=== PATIENT | male | born 1965 | race Caucasian/White ===

== ENCOUNTER → 2019-07-30 | Outpatient (CLI) | payer OTHER ==
[~2019-07-30] MED LIST: DIATRIZOATE MEGL/DIATRIZOA SOD 30 ML BTL PO ONE; IOPAMIDOL 370 MG/ML 200 ML INFUS..BTL INJ ONE; SODIUM CHLORIDE 0.9% 50ML 50 ML ONE
--- NOTE | 2019-07-30 19:17 | Diagnostic Imaging Report ---
CT Abdomen And Pelvis with Intravenous Contrast INDICATION: Lower abdominal pain ^[id number] ^1830 ^ABD PAIN; HX OF DIVERTICULITIS TECHNIQUE: Thin collimation axial images obtained from the diaphragm to the level of the pubic symphysis following the uneventful administration of 100 cc of low osmolar, nonionic intravenous contrast. Enteric contrast was also administered. Dose reduction techniques used: Automated exposure control, adjustment of the mAs and/or kVp according to patient size, standardized low-dose protocol, and/or iterative reconstruction technique. RADIATION DOSE: Total DLP: 752.47 mGy*cm Estimated effective dose: (DLP x 0.015 x size factor) mSv CTDIvol has been reviewed. It is below the limits set by the Radiation Protocol Committee (RPC). COMPARISON: None. ABDOMEN FINDINGS: Lung Bases: Clear. The visualized portions of the mediastinum are normal. Liver: Steatosis. The right lobe measures 18 cm. No evidence for mass. Gallbladder: Present and appears normal. No biliary ductal dilatation. Pancreas: Normal attenuation without mass or ductal dilatation. Spleen: Normal in size. No evidence of mass. Adrenal Glands: No evidence for mass. Kidneys: Right: Normal enhancement. No soft tissue mass. No hydronephrosis. Left: Normal enhancement. No soft tissue mass. No hydronephrosis. Lymph Nodes: No lymphadenopathy. Aorta: Normal in diameter PELVIS FINDINGS: Bowel: Stomach: Normal. Small Bowel: Normal in caliber with normal wall thickness. Enteric contrast present throughout. Large Bowel: There is enteric contrast from the cecum to the splenic flexure. Diverticulosis coli. There are chain sutures in in the mid descending colon with patulousness of this portion of the bowel. This portion is distended with air and formed stool. Distal to this, the colon appears normal. There is no associated inflammation. Appendix: Normal. Bladder: Circumferential mural thickening. The prostate gland seminal vesicles appear normal. Peritoneum/retroperitoneum: No free fluid or fluid collection. Bones: Mild degenerative changes of the spine. No focal osseous lesions. Soft tissues: Unremarkable. IMPRESSION: 1. Diverticulosis coli. No evidence for diverticulitis or bowel obstruction. Normal appendix. Patulousness of the mid descending colon likely secondary to surgery containing air and formed stool. 2. Steatosis. 3. Circumferential mural thickening of the urinary bladder may be the result of prostate hypertrophy or chronic cystitis. Signed by: Dr. Niall Naqvi MD on 07/30/2019 7:13 PM
== END ==
LOC: CT 17:35
PROVIDERS: ATTEND Family Medicine
DX: R10.31 Right lower quadrant pain (principal); Z87.19 Personal history of other diseases of the digestive system
CPT/HCPCS: 74177